=== PATIENT | male | born 1990 | race Caucasian/White ===

== ENCOUNTER 2017-08-14 17:45 | Emergency (ER) | payer SELFPAY ==
[2017-08-14 18:41] VITALS: BP 119/70; PULSE 55; RESP 18; TEMP 98.1; O2SAT 100
--- NOTE | 2017-08-14 18:52 | ED PDOC ---
Upper Extremity Pain/Injury Time Seen by Provider: 08/14/17 18:42 Chief Complaint (Nursing): Upper Extremity Problem/Injury Chief Complaint (Provider): Upper Extremity Problem/Injury History Per: Patient History/Exam Limitations: no limitations Onset/Duration Of Symptoms: Days Current Symptoms Are (Timing): Still Present Additional Complaint(s): Chris is a 27 year old male who presents to the emergency department with right hand swelling and deformity, onset 1 week ago after punching the wall. PMD: Labadia Past Medical History Vital Signs: Last Vital Signs Temp 98.1 F 08/14/17 18:38 Pulse 55 L 08/14/17 18:38 Resp 18 08/14/17 18:38 BP 119/70 08/14/17 18:38 Pulse Ox 100 08/14/17 18:38 - Family History Family History: States: No Known Family Hx - Home Medications Home Medications: Ambulatory Orders Medication Instructions Recorded Naproxen 1 tab PO Q12 PRN #14 tab 08/14/17 - Allergies Allergies/Adverse Reactions: Allergies Allergy/AdvReac Type Severity Reaction Status Date / Time No Known Allergies Allergy Verified 08/14/17 18:41 Review of Systems ROS Statement: Except As Marked, All Systems Reviewed And Found Negative Musculoskeletal: Positive for: Hand Pain (Right Hand Swelling) Physical Exam - Reviewed Nursing Documentation Reviewed: Yes Vital Signs Reviewed: Yes - Physical Exam Appears: Positive for: Non-toxic Extremity: Positive for: Other (Swelling noted to dorsum of hand by 5th MCP, Able to make fist with diffcuilty flexing 5th digit) Neurologic/Psych: Positive for: Alert, Oriented (x 3) - ECG O2 Sat by Pulse Oximetry: 100 (RA) Pulse Ox Interpretation: Normal - Progress ED Course And Treament: Motrin 600mg x 1 dose Xry of hand: fx noted of distal metacarpal displaced anteriorly d/w Dr. Evans. xrys sent to him for review. Advises ulnar gutter splint and f/ u in office Upon re-discussion, patient admits injury is 2 weeks old. Placed in ulnar gutter splint with attempt at reduction of distal metacarpal. Medical Decision Making Medical Decision Making: Time: 18:44 Plan: - Motrin Tab 600 mg PO STAT - Right X-Ray Scribe Attestation: Documented by Adam Pacheco, acting as a scribe for Maite Rader PA-C. Provider Scribe Attestation: All medical record entries made by the Scribe were at my direction and personally dictated by me. I have reviewed the chart and agree that the record accurately reflects my personal performance of the history, physical exam, medical decision making, and the department course for this patient. I have also personally directed, reviewed, and agree with the discharge instructions and disposition. Disposition - Clinical Impression Clinical Impression: Boxers fracture - Patient ED Disposition Is Patient to be Admitted: No - Disposition Referrals: Flip Evans MD [Medical Doctor] - Disposition: Routine/Home Disposition Time: 19:35 Condition: FAIR Prescriptions: Naproxen 1 tab PO Q12 PRN #14 tab PRN Reason: Pain, Moderate (4-7) Instructions: Boxer Fracture (ED) Forms: [employer] (Tajik)
--- NOTE | 2017-08-15 11:14 | RAD ---
PROCEDURE: Right Hand Radiographs. Point HISTORY: HAND INJURY COMPARISON: None. FINDINGS: BONES: Distal 5th metacarpal fracture with angulation. This is a non articular fracture. JOINTS: Normal. No osteoarthritic changes. SOFT TISSUES: Focal soft tissue swelling lateral aspect. OTHER FINDINGS: None. IMPRESSION: Angulated distal right 5th metacarpal fracture. Soft tissue swelling attests to the acuity of the fracture. Concordant results with the preliminary interpretation rendered by the emergency department physician procedure.
== END 2017-08-14 19:46 | disposition home or self-care (01) ==
LOC: H.ER 17:45
DX: S62.306A Unspecified fracture of fifth metacarpal bone, right hand, initial encounter for closed fracture (principal); W22.8XXA Striking against or struck by other objects, initial encounter; Y92.89 Other specified places as the place of occurrence of the external cause